=== PATIENT | female | born 1945 | race Caucasian/White ===

== ENCOUNTER 2017-04-08 19:10 | Observation (INO) | payer MEDICARE ==
[2017-04-08 19:56] LABS: BASOPHIL# 0.1 X 10^3uL (0.0-0.1); EOSINOPHILS 1.9 % (0.0-6.0); EOSINOPHILS# 0.2 X 10^3uL (0.0-0.4); HEMATOCRIT 38.5 % (36.0-48.0); HEMOGLOBIN 13.1 g/dL (12.0-16.0); LYMPHOCYTES 30.6 % (20.0-40.0); LYMPHOCYTES# 2.6 X 10^3uL (0.8-3.8); MEAN CELL VOLUME 79.8 fL (80.0-100.0); MEAN CORPUS. HGB CONCENTRATION 33.9 g/dL (32.0-36.0); MEAN PLATELET VOLUME 8.6 fL (7.4-10.4); MONOCYTES 9.3 % (2.0-10.0); MONOCYTES# 0.8 X 10^3uL (0.2-1.0); NEUTROPHILS 57.2 % (54.0-75.0); NEUTROPHILS# 4.9 X 10^3uL (2.6-6.7); RED BLOOD COUNT 4.83 X 10^6uL (4.20-6.10); WHITE BLOOD COUNT 8.6 X 10^3uL (3.9-10.7)
[2017-04-08] MEDS ORDERED: NORMAL SALINE 1,000 ML IV ONE (19:59)
[2017-04-08] MEDS ORDERED: ONDANSETRON HCL 4 MG/2 ML VIAL ONE (19:59)
[2017-04-08 20:03] LABS: POTASSIUM 3.8 mmol/L (3.5-5.1)
[2017-04-08 20:04] LABS: ALBUMIN 4.9 g/dL (3.5-5.0); BILIRUBIN, DIRECT 0.2 mg/dL (0.0-0.4); BILIRUBIN, TOTAL 0.6 mg/dL (0.2-1.3); CALCIUM 9.8 mg/dL (8.4-10.2); TOTAL PROTEIN 8.9 g/dL (6.3-8.2)
[2017-04-08] MEDS ORDERED: MAG-AL PLUS XS SUSP 30 ML UDC PO PRN (22:13)
[2017-04-08] MEDS ORDERED: HOME MEDICATION LIST NEEDED 1 EA EACH MISC ONE (22:13)
[2017-04-08] MEDS ORDERED: ACETAMINOPHEN 325 MG TABLET PO PRN (22:13)
[2017-04-08] MEDS ORDERED: ONDANSETRON HCL 4 MG/2 ML VIAL IV PRN (22:17)
--- NOTE | 2017-04-08 22:41 | ER PHYSICIAN DOCUMENTATION ---
Physician Documentation [facility] Name:Amelia Horner Age:71 yrs Sex:Female :1945 Arrival Date:04/08/2017 Time:19:10 Bed4 Private MD: Joseph Vela Disposition: 04/08/17 21:02 Admit ordered for Tamara Temple. Preliminary diagnosis are Gastroenteritis, Dehydration - (Hx of Liver Transplant), Metabolic Acidosis - due to dehydration (CO2 =11), Chronic Renal Failure/Insufficiency. - Bed requested for Medical/Surgical. - Condition is Fair. - Problem is new. - Symptoms are unchanged. 23 HR OBS Yes HPI: 04/08 19:42 This 71 yrs old Female presents to ER via Private Vehicle with complaints of cd Weakness; Diarrhea and dehydration. 19:42 The patient presents to the emergency department with nausea, that is mild, with cd vomiting, that is occasional, 4 times since the onset of symptoms, described as clear fluid, with diarrhea, 5 times today, 20 times this week, described as Slimy green, but not black or melanotic, without any complaints of abdominal pain. Onset: The symptom(s)/episode began/occurred acutely, 3 day(s) ago. Possible causes: unknown. The symptoms are aggravated by food , The symptoms are alleviated by nothing. Patient took two doses of Imodium AD yesterday. Associated signs and symptoms: Pertinent positives: anorexia, diarrhea, nausea, vomiting, Pertinent negatives: abdominal pain, dysuria, fever, GI bleeding, hematuria. Severity of symptoms: At their worst the symptoms were moderate in the emergency department the symptoms are unchanged. Patient reports feeling very weak and dizzy at times due to her dehydration. She has been trying to drink Gatorade, but reports it goes right through her. She denies high fever, chills, abdominal pain, but has had some abdominal cramping. She denies eating old leftover food, tick bites, stream / skelton water ingestion or recent antibiotics. She is a Liver Transplant patient. She is on a Kidney Transplant list. She has not been confused.. Historical: - Allergies: Ciprofloxacin HCl; ciperol; Oxycodone HCl; QUINIDINE/QUININE & DERIVATIVES; Sulfa (Sulfonamide Antibiotics); Latex; - Home Meds: 1. Acetaminophen Oral 2. sirolimus 1 mg oral tab once daily 3. omeprazole 40 mg oral cpDR 1 cap once daily 4. cyclobenzaprine 10 mg oral tab 1 tab 5. citalopram 20 mg oral tab 1 tab once daily 6. loratadine 10 mg oral cap daily 7. azathioprine 50 mg oral tab once daily 8. d3 3000iu 9. tramadol 50 mg oral tab 1 tab every 4-6 hours as needed - PMHx: Renal Failure; chronic pancreatitis ; a-fib; DIABETES - NIDDM; chronic renal disease; hysterectomy and bilateral oophorectomy, colitis, current C Diff, liver transplant, dialysis, fish R ant chest, port left ant chest. (2014 - 2014); Pt had c diff only during liver transplant; - PSHx: Liver Transplant 3 yrs ago; Right total hip replacement; - Tetanus: > 10 years. - Ebola Screening: : Patient negative for fever greater than or equal to 101.5 degrees Fahrenheit, and additional compatible Ebola Virus Disease symptoms. Patient denies exposure to infectious person. Patient denies travel to an Ebola-affected area in the 21 days before illness onset. No symptoms or risks identified at this time. . - Immunization history: Pneumococcal vaccine is not up to date, Flu Vaccine None. - Social history: Smoking status: Patient states was never smoker of tobacco. Patient/guardian denies using alcohol, street drugs, IV drugs, marijuana. ROS: 19:51 ENT: Negative for injury, pain, epistaxis and discharge. cd Neck: Negative for injury, pain, stiffness and swelling. Cardiovascular: Negative for chest pain, palpitations, edema and pleuritic pain. Respiratory: Negative for shortness of breath, dyspnea on exertion, cough, sputum production, wheezing, hemoptysis and pleuritic chest pain. Back: Negative for injury, pain or muscle spasms. : Negative for injury, bleeding, discharge, dysuria, frequency, urgency and swelling. MS/Extremity: Negative for injury, deformity, edema, calf tenderness, pain or coldness. Skin: Negative for injury, rash, itching and discoloration. 19:51 Neuro: Negative for headache, weakness, numbness, tingling, and seizure. cd 19:51 Constitutional: Positive for poor PO intake, Negative for chills, fever. 19:51 Abdomen/GI: Positive for nausea, vomiting, diarrhea, anorexia, Negative for abdominal pain, abdominal distension, hematemesis, black/tarry stool, rectal bleeding. 19:51 All other systems are negative. Exam: Head/Face: Normocephalic, atraumatic. ENT: Nares patent. No nasal discharge, no septal abnormalities noted. Tympanic membranes are normal and external auditory canals are clear. Oropharynx with no redness, swelling, or masses, exudates, or evidence of obstruction, uvula midline. Mucous membranes dry 19:52 Neck: Trachea midline, no thyromegaly or masses palpated, and no cervical cd lymphadenopathy. Supple, full range of motion without nuchal rigidity, or vertebral point tenderness. No Meningismus. 19:52 Constitutional: The patient appears alert, awake, non-diaphoretic, non-toxic, well developed, well nourished. 19:52 Cardiovascular: Rate: normal, Rhythm: regular, Pulses: no pulse deficits are appreciated, Heart sounds: normal, Edema: is not appreciated. 19:52 Respiratory: the patient does not display signs of respiratory distress, Respirations: normal, no acute changes, Breath sounds: are normal, clear throughout. 19:52 Abdomen/GI: Inspection: abdomen appears normal, Bowel sounds: active, Palpation: abdomen is soft and non-tender, mass, is not appreciated, rebound tenderness, is not appreciated, voluntary guarding, is not appreciated, involuntary guarding, is not appreciated, no appreciated organomegaly. 19:52 Back: pain, is absent, ROM is normal, CVA tenderness, is absent. 19:52 Musculoskeletal/extremity: Exam is negative for acute changes. 19:52 Skin: Exam negative for acute changes. 19:52 Neuro: Exam negative for acute changes. Vital Signs: 19:46 BP 122 / 66; Pulse 90; Resp 18; Temp 97.5; Pulse Ox 100% on R/A; sc1 20:02 BP 149 / 56; Pulse 80; Resp 17; Temp 98.5; Pulse Ox 95% on R/A; Weight 58.97 kg; Height mk2 5 ft. 1 in. (154.94 cm); Pain 1/10; 21:26 BP 135 / 67; Pulse 74; Resp 15; Pulse Ox 100% 2 lpm ; Pain 0/10; mk2 20:02 Body Mass Index 24.56 (58.97 kg, 154.94 cm) mk2 [place] Coma Score: 19:52 Eye Response: spontaneous(4). Verbal Response: oriented(5). Motor Response: obeys cd commands(6). Total: 15. MDM: 19:15 Patient medically screened. 19:20 Data interpreted: Pulse oximetry: on room air is 99 %. Interpretation: normal. 19:53 Differential diagnosis: viral gastroenteritis, gastroenteritis, Dehydration, cd Electrolyte Imbalance. 19:54 Data reviewed: vital signs, nurses notes, old medical records, and as a result, I will cd continue to observe the patient, administer IV fluids, NS bolus, NS maintenence, and Zofran. The patient may need admission for Observation and IV hydration overnight.. 20:58 Counseling: I had a detailed discussion with the patient and/or guardian regarding: the cd historical points, exam findings, and any diagnostic results supporting the discharge/admit diagnosis, lab results, the need for further work-up and treatment in the hospital, risk of leaving the Emergency Department. Response to treatment: the patient's symptoms have mildly improved after treatment, and as a result, I will admit patient. Physician consultation: Tamara Temple DO was called at 20:45, was contacted at 20:45, regarding admission, to the floor, consult, patient's condition, need to come to ED to see patient, and will see patient in ED, shortly, later today. 04/08 20:15 Order name: AMMONIA LEVEL; Complete Time: 20:30 EDMS 04/08 20:29 Interpretation: Normal. 04/08 20:24 Order name: CBC AUTO DIF, MDIF/RMOR IF IND; Complete Time: 20:30 EDMS 04/08 20:29 Interpretation: Normal. 04/08 20:24 Order name: BASIC METABOLIC PANEL; Complete Time: 20:30 EDMS 04/08 20:30 Interpretation: Normal Except: CARBON DIOXIDE 11; BLOOD UREA NITROGEN 86; CREATININE cd 3.2; Chronic Renal Insufficiency, Dehydration. 04/08 20:24 Order name: MAGNESIUM; Complete Time: 20:30 EDMS 04/08 20:30 Interpretation: Normal. 04/08 20:24 Order name: HEPATIC PANEL; Complete Time: 20:30 EDMS 04/08 20:30 Interpretation: Normal. 04/08 20:24 Order name: LIPASE; Complete Time: 20:30 EDMS 04/08 20:30 Interpretation: Normal. 04/08 20:58 Order name: FECAL LEUKS (LACTOFERRIN) EDWI 04/08 21:02 Interpretation: Abnormal: FECAL LEUKS (LACTOFERRIN) POSITIVE. 04/08 20:58 Order name: OCCULT BLOOD (1-3 SAMPLES) EDWI 04/08 21:02 Interpretation: Normal: OCCULT BLOOD (1-3 SAMPLES) OCCULT BLOOD IS NEGATIVE. 04/09 06:43 Order name: BASIC METABOLIC PANEL [facility] 04/09 06:43 Order name: HEPATIC PANEL [facility] 04/09 06:49 Order name: CBC AUTO DIF, MDIF/RMOR IF IND [facility] 04/09 08:19 Order name: STOOL CULTURE PANEL [facility] 04/09 08:49 Order name: C DIFFICILE BY PCR [facility] 04/09 16:48 Order name: BASIC METABOLIC PANEL [facility] 04/09 19:21 Order name: ARTERIAL BLOOD GAS [facility] 04/09 19:21 Order name: LACTATE [facility] 04/09 19:47 Order name: BASIC METABOLIC PANEL [facility] 04/09 19:47 Order name: PHOSPHORUS [facility] 04/09 23:02 Order name: BASIC METABOLIC PANEL [facility] 04/10 07:29 Order name: CBC AUTO DIF, MDIF/RMOR IF IND [facility] 04/10 07:50 Order name: COMPREHENSIVE METABOLIC PANEL [facility] 04/08 19:37 Order name: Hemocult Stool; Complete Time: 20:01 cd Dispensed Medications: 19:39 CANCELLED (Physician Discretion): NS 0.9% 1000 ml IV at bolus once cd 20:01 Drug: NS 0.9% 250 ml; Route: IV; Rate: bolus; Site: right antecubital; mk2 20:34 Follow up: IV Status: Completed infusion; IV Intake: 250ml mk2 20:01 Drug: Zofran 4 mg; Route: IVP; Infused Over: 2 mins; Site: right antecubital; mk2 20:16 Follow up: Response: No adverse reaction mk2 20:33 Drug: NS 0.9% 1000 ml; Route: IV; Rate: 84 ml/hr; Site: right antecubital; mk2 22:40 Follow up: IV Status: Infusion continued upon admission mk2 Point of Care Testing: Guaiac: 20:01 Stool Guaiac: Negative; Stool Hemoccult Control: Pass; sc1 Signatures: Jillian Matamoros, RN RN sc1 Joseph Thacker MD MD cd Kruger, Meg, NIKO RN mk2
--- NOTE | 2017-04-08 22:41 | ER NURSING DOCUMENTATION ---
Nurse's Notes [facility] Name:Amelia Horner Age:71 yrs Sex:Female :1945 Arrival Date:04/08/2017 Time:19:10 Bed4 Private MD: Diagnosis:Gastroenteritis;Dehydration- (Hx of Liver Transplant);Metabolic Acidosis-due to dehydration (CO2 =11);Chronic Renal Failure/Insufficiency Presentation: 04/08 19:12 Acuity: EDGAR 2 oh1 19:27 Presenting complaint: Patient states: N/V/D since Wednesday. Transition of care: Home. sc1 Notified ED Physician of patient's arrival and CC Dr. Thacker notified. 19:27 Method Of Arrival: Private Vehicle oh1 Triage Assessment: 19:46 General: Appears in no apparent distress, well developed, well nourished, well groomed, sc1 Behavior is cooperative, pleasant. Pain: Denies pain. Historical: - Allergies: Ciprofloxacin HCl; ciperol; Oxycodone HCl; QUINIDINE/QUININE & DERIVATIVES; Sulfa (Sulfonamide Antibiotics); Latex; - Home Meds: 1. Acetaminophen Oral 2. sirolimus 1 mg oral tab once daily 3. omeprazole 40 mg oral cpDR 1 cap once daily 4. cyclobenzaprine 10 mg oral tab 1 tab 5. citalopram 20 mg oral tab 1 tab once daily 6. loratadine 10 mg oral cap daily 7. azathioprine 50 mg oral tab once daily 8. d3 3000iu 9. tramadol 50 mg oral tab 1 tab every 4-6 hours as needed - PMHx: Renal Failure; chronic pancreatitis ; a-fib; DIABETES - NIDDM; chronic renal disease; hysterectomy and bilateral oophorectomy, colitis, current C Diff, liver transplant, dialysis, fish R ant chest, port left ant chest. (2014 - 2014); Pt had c diff only during liver transplant; - PSHx: Liver Transplant 3 yrs ago; Right total hip replacement; - Tetanus: > 10 years. - Ebola Screening: : Patient negative for fever greater than or equal to 101.5 degrees Fahrenheit, and additional compatible Ebola Virus Disease symptoms. Patient denies exposure to infectious person. Patient denies travel to an Ebola-affected area in the 21 days before illness onset. No symptoms or risks identified at this time. . - Immunization history: Pneumococcal vaccine is not up to date, Flu Vaccine None. - Social history: Smoking status: Patient states was never smoker of tobacco. Patient/guardian denies using alcohol, street drugs, IV drugs, marijuana. Screenin:47 Infectious Disease Risk None. Abuse screen: Denies threats or abuse. Nutritional sc1 screening: No deficits noted. Assessment: 20:03 See Triage Assessment done by same RN. mk2 Vital Signs: 19:46 BP 122 / 66; Pulse 90; Resp 18; Temp 97.5; Pulse Ox 100% on R/A; sc1 20:02 BP 149 / 56; Pulse 80; Resp 17; Temp 98.5; Pulse Ox 95% on R/A; Weight 58.97 kg; Height mk2 5 ft. 1 in. (154.94 cm); Pain 1/10; 21:26 BP 135 / 67; Pulse 74; Resp 15; Pulse Ox 100% 2 lpm ; Pain 0/10; mk2 20:02 Body Mass Index 24.56 (58.97 kg, 154.94 cm) mk2 [place] Coma Score: 19:52 Eye Response: spontaneous(4). Verbal Response: oriented(5). Motor Response: obeys cd commands(6). Total: 15. ED Course: 19:11 Patient arrived in ED. 19:12 Jillian Matamoros, RN is Primary Nurse. sc1 19:12 Triage completed. sc1 19:15 Joseph Thacker MD is Attending Physician. cd 19:41 Inserted peripheral IV: 20 gauge in right antecubital area and blood collected. mk2 19:47 Notified ED Physician of patient's arrival and chief complaint. Dr. Thacker notified. oh1 Allergy Band Placed Arm band placed on Bed in low position Call Light in Reach Gowned HOB Elevated Side rails up x1. Labs ordered per protocol. Drawn by ED staff. Urine obtained. 20:03 Resting quietly. Pt states she is incontinent of stool. Depends given to pt. Pt is has mk2 an unsteady gait to the restroom but states that is her normal. 20:17 Valuables Remains with patient Patient has correct armband on for positive mk2 identification. Placed in gown. Bed in low position. Call light in reach. Side rails up X 1. ED physician of Dr. Thacker notified. Notified bun 86 repeated back to MUKUND. Pulse ox on. NIBP on. Verbal reassurance given. Warm blanket given. 20:59 Tamara Temple DO is Admitting Physician. cd 22:39 Report given to Anibal POPE. 2 Administered Medications: 19:39 CANCELLED (Physician Discretion): NS 0.9% 1000 ml IV at bolus once cd 20:01 Drug: NS 0.9% 250 ml; Route: IV; Rate: bolus; Site: right antecubital; mk2 20:34 Follow up: IV Status: Completed infusion; IV Intake: 250ml mk2 20:01 Drug: Zofran 4 mg; Route: IVP; Infused Over: 2 mins; Site: right antecubital; mk2 20:16 Follow up: Response: No adverse reaction 2 20:33 Drug: NS 0.9% 1000 ml; Route: IV; Rate: 84 ml/hr; Site: right antecubital; mk2 22:40 Follow up: IV Status: Infusion continued upon admission 2 Point of Care Testing: Guaiac: 20:01 Stool Guaiac: Negative; Stool Hemoccult Control: Pass; oh1 Intake: 20:34 IV: 250ml; Total: 250ml. 2 Outcome: 21:02 Decision to Admit by Provider. cd 22:39 Admitted to Med/surg accompanied by nurse, via stretcher. mk2 22:39 Condition: stable 22:39 Instructed on need to admit 22:40 Patient left the ED. 2 Signatures: Jillian Matamoros RN RN oh1 Joseph Thacker MD MD cd Kruger, Meg, RN RN 2 Primo Kuo
[2017-04-08] MEDS ORDERED: NORMAL SALINE 1,000 ML IV SCH (23:00)
[2017-04-09 06:30] LABS: BASOPHIL# 0.1 X 10^3uL (0.0-0.1); BASOPHILS 1.7 % (0.0-2.0); EOSINOPHILS 2.9 % (0.0-6.0); EOSINOPHILS# 0.2 X 10^3uL (0.0-0.4); HEMATOCRIT 34.8 % (36.0-48.0); HEMOGLOBIN 11.6 g/dL (12.0-16.0); LYMPHOCYTES 40.2 % (20.0-40.0); LYMPHOCYTES# 2.7 X 10^3uL (0.8-3.8); MEAN CELL VOLUME 79.9 fL (80.0-100.0); MEAN CORPUS. HGB CONCENTRATION 33.4 g/dL (32.0-36.0); MEAN CORPUSCULAR HEMOGLOBIN 26.7 pg (29.0-35.0); MEAN PLATELET VOLUME 8.1 fL (7.4-10.4); MONOCYTES 11.1 % (2.0-10.0); MONOCYTES# 0.8 X 10^3uL (0.2-1.0); NEUTROPHILS 44.1 % (54.0-75.0); RED BLOOD COUNT 4.36 X 10^6uL (4.20-6.10); RED CELL DISTRIBUTION WIDTH 12.9 % (11.5-14.5); WHITE BLOOD COUNT 6.8 X 10^3uL (3.9-10.7)
[2017-04-09 06:40] LABS: ALBUMIN 4.3 g/dL (3.5-5.0); BILIRUBIN, DIRECT 0.1 mg/dL (0.0-0.4); BILIRUBIN, TOTAL 0.6 mg/dL (0.2-1.3); CALCIUM 9.1 mg/dL (8.4-10.2); POTASSIUM 3.7 mmol/L (3.5-5.1); TOTAL PROTEIN 7.8 g/dL (6.3-8.2)
--- NOTE | 2017-04-09 07:54 | PROGRESS NOTE: IM APSO ---
Assessment and Plan - Date of Encounter Date of Encounter: 04/09/17 (1) Chronic renal disease Status: Chronic Assessment and plan: Cr nearly back to baseline. Current Visit: No (2) Status post liver transplant Status: Chronic Assessment and plan: No acute issues. Current Visit: No (3) Gastroenteritis Status: Acute Assessment and plan: Await stool cultures, NVD slowing but loose stool this AM Current Visit: Yes (4) Dehydration Status: Resolved Assessment and plan: Numbers are improved. Possible d/c later today if self sustaining with good VS and some more info about stool cultures. Current Visit: Yes - Time Spent With Patient Total time spent with greater than 50% in coordination of care (as documented) at patient's floor/unit and/or counseling patient: IM: PN Subjective General: fatigue Gastrointestinal: diarrhea, no abdominal pain IM: PN Objective Exam - I&O/Vital Signs I&O: Intake & Output 04/08/17 04/09/17 04/09/17 21:59 05:59 13:59 Intake Total 1250 Balance 1250 Weight 59 kg Intake: IV 1000 Right Antecubital 1000 Oral 250 Other: Urine Appearance Clear Stool Size Small Stool Characteristics Liquid Vital Signs: Last Vital Signs Temp 36.1 C L 04/09/17 06:49 Pulse 68 04/09/17 06:49 Resp 16 04/09/17 06:49 BP 119/69 04/09/17 06:49 Pulse Ox 97 04/09/17 06:49 Oxygen Delivery Method Room Air - Constitutional General appearance: Present: average body habitus. Absent: acute distress - Eye Eye exam: Present: EOMI - ENT ENT exam: Present: mucous membranes moist - Respiratory Respiratory exam: Present: clear - Cardiovascular Cardiovascular exam: Present: RRR. Absent: systolic murmur - GI/Abdominal GI/Abdominal exam: Present: normal bowel sounds, soft - Neurological Exam Neurological exam: Present: oriented X3 - Psychiatric Psychiatric exam: Present: normal mood - Lab Labs: Laboratory Last Values WBC 6.8 X 10^3uL (3.9-10.7) 04/09/17 05:00 RBC 4.36 X 10^6uL (4.20-6.10) 04/09/17 05:00 Hgb 11.6 g/dL (12.0-16.0) L 04/09/17 05:00 Hct 34.8 % (36.0-48.0) L 04/09/17 05:00 MCV 79.9 fL (80.0-100.0) L 04/09/17 05:00 MCH 26.7 pg (29.0-35.0) L 04/09/17 05:00 MCHC 33.4 g/dL (32.0-36.0) 04/09/17 05:00 RDW 12.9 % (11.5-14.5) 04/09/17 05:00 Plt Count 244 X 10^3uL (130-440) 04/09/17 05:00 MPV 8.1 fL (7.4-10.4) 04/09/17 05:00 Neutrophils % 44.1 % (54.0-75.0) L 04/09/17 05:00 Lymphocytes % 40.2 % (20.0-40.0) H 04/09/17 05:00 Eosinophils % 2.9 % (0.0-6.0) 04/09/17 05:00 Basophils % 1.7 % (0.0-2.0) 04/09/17 05:00 Neutrophils # 3.0 X 10^3uL (2.6-6.7) 04/09/17 05:00 Lymphocytes # 2.7 X 10^3uL (0.8-3.8) 04/09/17 05:00 Monocytes 11.1 % (2.0-10.0) H 04/09/17 05:00 Monocytes # 0.8 X 10^3uL (0.2-1.0) 04/09/17 05:00 Eosinophils # 0.2 X 10^3uL (0.0-0.4) 04/09/17 05:00 Basophils # 0.1 X 10^3uL (0.0-0.1) 04/09/17 05:00 Sodium 140 mmol/L (137-145) 04/09/17 05:00 Potassium 3.7 mmol/L (3.5-5.1) 04/09/17 05:00 Chloride 111 mmol/L (98-107) H 04/09/17 05:00 Carbon Dioxide 14 mmol/L (22-30) L 04/09/17 05:00 BUN 83 mg/dL (7-17) H* 04/09/17 05:00 Creatinine 2.9 mg/dL (0.5-1.0) H 04/09/17 05:00 GFR Calculation 17 mL/min 04/09/17 05:00 Glucose 117 mg/dL (70-100) H 04/09/17 05:00 Calcium 9.1 mg/dL (8.4-10.2) 04/09/17 05:00 Magnesium 2.0 mg/dL (1.6-2.3) 04/08/17 11:37 Total Bilirubin 0.6 mg/dL (0.2-1.3) 04/09/17 05:00 Direct Bilirubin 0.1 mg/dL (0.0-0.4) 04/09/17 05:00 AST 19 U/L (14-36) 04/09/17 05:00 ALT 30 U/L (9-52) 04/09/17 05:00 Alkaline Phosphatase 95 U/L (38-126) 04/09/17 05:00 Ammonia < 9 umol/L (9-30) L 04/08/17 18:50 Total Protein 7.8 g/dL (6.3-8.2) 04/09/17 05:00 Albumin 4.3 g/dL (3.5-5.0) 04/09/17 05:00 Lipase 40 U/L (23-300) 04/08/17 11:37 Quality Questions - VTE Prophylaxis Assessment VTE Present on Admission?: No Patient at risk for venous thromboembolism?: Yes VTE Risk Level: Moderate Risk Pharmaceutical VTE prophylaxis contraindication reason: not indicated Mechanical VTE prophylaxis contraindication reason: not indicated (will get her moving!)
--- NOTE | 2017-04-09 09:17 | HISTORY & PHYSICAL ---
DATE OF ADMISSION: 04/08/17 ATTENDING PHYSICIAN: Tamara Temple MD PRIMARY CARE PHYSICIAN: DAMARIS Gastelum CHIEF COMPLAINT: Diarrhea and dehydration. HISTORY OF PRESENT ILLNESS: The patient is a 71-year-old who was with history of chronic kidney disease and liver transplant who has had a progressive gastroenteritis this past week. Patient states that she felt fine on Wednesday. They had a family barbeque with no significant symptoms or concerns. On Wednesday, she had a progression in her symptoms. Initially, it started out as what she calls egg burps, for which she had gross taste in her mouth and an upset stomach. This progressed dramatically to diarrhea, for which she called constant. This diarrhea continued and a day later she did develop some vomiting for which she had 2 episodes both yesterday and today. Patient states that she was not overly nauseated or had an upset stomach, but could not keep anything in. Her son noticed that she was hiccuping a lot, and this is what her interpretation of the egg burps were. Patient has been trying to stay hydrated on an outpatient basis but today she just felt too weak and the symptoms were ongoing too long, so she came in for an evaluation. Potential other family members with illness but did not last as long/started later, [id number] did have some GI symptoms Wednesday and Wednesday of this week and most recently her grandson (her sons child), did have 1 episode of vomiting and 1 loose stool today. PAST MEDICAL HISTORY 1. History of cirrhosis, status post liver transplant. 2. Chronic kidney disease with history of dialysis. 3. History of diabetes. 4. History of chronic pain related to multiple accidents, spinal, rib and wrist. 5. Hypertension. 6. Hyperlipidemia. 7. History of chronic pancreatitis. PAST SURGICAL HISTORY 1. Liver transplant 3 years ago. 2. Right total hip arthroplasty. FAMILY HISTORY: Her father had heart disease as well as history of lung cancer. Mother had breast cancer and diabetes. SOCIAL HISTORY: Patient currently lives alone. She denies any smoking. No alcohol. Her primary care physician is DAMARIS Gastelum at [facility]. MEDICATIONS Tylenol 500 mg every 8 hours as needed for pain. Imuran 50 mg 1-1/2 tablets every other evening. Vitamin D 2000 units daily. Citalopram 20 mg daily. Cyclobenzaprine 10 mg 3 times a day as needed. Claritin 10 mg daily. Omeprazole 1 capsule daily. Senna 2 tabs 2 times daily as needed for constipation. Simvastatin 10 mg nightly. Sirolimus 2 tabs by mouth daily. Tramadol 1 tab every 6 hours as needed for pain. ALLERGIES: Azithromycin. Ciprofloxacin. Latex. Oxycodone. Quinidine. Sulfa. REVIEW OF SYSTEMS GENERAL: Patient describes fatigue. No fever. No chills. HEENT: She has a dry mouth. CARDIOVASCULAR: No chest pain. No palpitations. She did have some swelling in her legs recently, that she saw Jarad for. RESPIRATORY: No shortness of breath. No cough. ABDOMEN: Did have nausea, vomiting as well as diarrhea. Decreased appetite. She has minimal abdominal pain. No bleeding that she has noted. : Denies any dysuria or frequency. MUSCULOSKELETAL: Denies any pain. She has chronic pain issues but no acute. SKIN: No rash. NEURO: No headache, weakness or changes in mental status. PHYSICAL EXAMINATION VITAL SIGNS: Temperature 97.5, blood pressure 122/56, pulse 90, respiratory rate 18. She is 100% on room air. GENERAL: Patient appears mildly dehydrated but in no acute distress. She is wrapped in multiple blankets in the exam room when I am seeing her. HEENT: Normocephalic, atraumatic. Oropharynx is clear but dry. NECK: Supple. No jugular venous distention. No carotid bruits noted. CARDIOVASCULAR: Normal S1, S2 with no murmur. RESPIRATORY: No increased work of breathing. No retractions. Clear to auscultation bilaterally. ABDOMEN: Soft. She does have active bowel sounds. No rebound or guarding noted on exam. MUSCULOSKELETAL: She moves arms and legs equally. SKIN: No acute changes. NEURO: Grossly nonfocal. LABORATORY: White count 8.6, hemoglobin 13.1, hematocrit 38.5, platelets of 348. Most notable, patient is typically anemic with labs from earlier this year showing hemoglobin 10 and hematocrit of 33. BMP showed sodium 137, potassium 3.8, chloride 107, bicarb 11, BUN is 86 and creatinine is 3.2. Typically her most recent creatinine was 2.8. Magnesium 2.0, lipase 40, AST 21, ALT 32, alkaline phosphatase 127. Ammonia level is less than 0. Negative blood. Positive fecal leukocytes. ASSESSMENT/PLAN: This is a 71-year-old female with history of liver failure, status post liver transplant and chronic kidney disease, presenting with an acute probable viral gastroenteritis causing dehydration in acute on chronic renal insufficiency. 1. Gastroenteritis. Patient currently has both vomiting and diarrhea. Most likely a viral etiology as her white count is not significantly elevated and she has some family members with similar or milder cases. Will continue to monitor her symptoms and treat as needed but will await her stool cultures. 2. Dehydration. This is secondary to GI loss. Will replete with gentle IV fluids through the night. Will likely need to replete her sodium level in the morning but hesitant to add sodium to her fluids tonight with her renal function as it is. 3. Acute on chronic kidney disease. Patient's BUN and creatinine are both elevated above her previous baseline, likely related to acute dehydration. Will do gentle fluid and reassess in the morning. 4. History of liver transplant. Patient is doing well overall from a liver standpoint. Her alkaline phosphatase is slightly bumped today, likely related to some dehydration. Denies any other symptoms of concern. Will have her home medications ordered, after pharmacy does medication reconciliation in the morning. 5. Chronic pain. Currently patient denies any symptoms of concern. Will have Tylenol available, but she denies needing any Flexeril or any of her other medications. 6. Deep vein thrombosis prophylaxis. Patient is moderate risk, although anticipate short stay in the hospital if symptoms improve, will order SCDs tonight and if do anticipate needing an additional night of stay, would recommend adding Lovenox. 7. Disposition. Patient is a [facility] patient. Will transition care to physician appropriately covering tomorrow. GRETA
[2017-04-09] MEDS ORDERED: NORMAL SALINE FLUSH 250 ML ONE (11:11)
[2017-04-09] MEDS ORDERED: SIROLIMUS 1 MG PO SCH ×2 (12:30→21:00)
[2017-04-09] MEDS ORDERED: NON-FORMULARY MEDICATION (Loratadine [Claritin] 10 MG) PO SCH (12:30)
[2017-04-09] MEDS: CHOLECALCIFEROL 1,000 UNIT CAPSULE PO SCH (13:41)
[2017-04-09] MEDS: CITALOPRAM HYDROBROMIDE 10 MG TABLET PO SCH (13:42)
[2017-04-09] MEDS: traMADol HCL 50 MG TABLET PO SCH ×2 (14:12→20:12)
[2017-04-09] MEDS: SIROLIMUS 2 MG PO SCH (15:59)
[2017-04-09] MEDS: PANTOPRAZOLE 40 MG VIAL IV SCH (16:01)
[2017-04-09 16:33] LABS: CALCIUM 9.3 mg/dL (8.4-10.2); POTASSIUM 3.9 mmol/L (3.5-5.1)
[2017-04-09 19:18] LABS: ARTERIAL BLOOD GAS HCO3 7.6 mmol/L (22-26); ARTERIAL BLOOD GAS PCO2 16.7 mmHg (35-45); ARTERIAL BLOOD GAS PO2 84 mmHg (80-105)
[2017-04-09 19:19] LABS: ARTERIAL BLD GAS O2 SATURATION 95 % (95-98); ARTERIAL BLOOD GAS BASE EXCESS -19 (-2-+3); ARTERIAL BLOOD GAS TOTAL CO2 8 mmHg (23-27)
[2017-04-09 19:20] LABS: LACTATE < 0.30 mmol/L
[2017-04-09] MEDS ORDERED: NORMAL SALINE 500 ML IV ONE (19:33)
[2017-04-09 19:42] LABS: BLOOD UREA NITROGEN 68 mg/dL (7-17); CALCIUM 9.5 mg/dL (8.4-10.2); CHLORIDE 115 mmol/L (98-107); EST GLOMERULAR FILTRATION RATE 21 mL/min; GLUCOSE 108 mg/dL (70-100); POTASSIUM 3.5 mmol/L (3.5-5.1); SODIUM 136 mmol/L (137-145)
[2017-04-09] MEDS: AZITHROMYCIN 250 MG TABLET PO SCH (20:12)
[2017-04-09 22:59] LABS: POTASSIUM 3.8 mmol/L (3.5-5.1)
[2017-04-10] MEDS: PANTOPRAZOLE 40 MG VIAL IV SCH (06:11)
[2017-04-10] MEDS: LOPERAMIDE HCL 2 MG CAPSULE PO PRN ×2 (06:12→09:01)
[2017-04-10 07:22] LABS: BASOPHILS 0.3 % (0.0-2.0); EOSINOPHILS 3.2 % (0.0-6.0); EOSINOPHILS# 0.2 X 10^3uL (0.0-0.4); HEMATOCRIT 31.5 % (36.0-48.0); HEMOGLOBIN 10.6 g/dL (12.0-16.0); LYMPHOCYTES 39.7 % (20.0-40.0); LYMPHOCYTES# 2.6 X 10^3uL (0.8-3.8); MEAN CORPUS. HGB CONCENTRATION 33.6 g/dL (32.0-36.0); MEAN CORPUSCULAR HEMOGLOBIN 26.9 pg (29.0-35.0); MEAN PLATELET VOLUME 8.9 fL (7.4-10.4); MONOCYTES 7.8 % (2.0-10.0); MONOCYTES# 0.5 X 10^3uL (0.2-1.0); NEUTROPHILS# 3.3 X 10^3uL (2.6-6.7); RED BLOOD COUNT 3.95 X 10^6uL (4.20-6.10); RED CELL DISTRIBUTION WIDTH 13.4 % (11.5-14.5); WHITE BLOOD COUNT 6.6 X 10^3uL (3.9-10.7)
[2017-04-10 07:36] LABS: A/G RATIO 1.2; ALBUMIN 3.9 g/dL (3.5-5.0); BILIRUBIN, TOTAL 0.5 mg/dL (0.2-1.3); CALCIUM 8.9 mg/dL (8.4-10.2); POTASSIUM 4.1 mmol/L (3.5-5.1); TOTAL PROTEIN 7.2 g/dL (6.3-8.2)
[2017-04-10] MEDS: CITALOPRAM HYDROBROMIDE 10 MG TABLET PO SCH (08:59)
[2017-04-10] MEDS: AZITHROMYCIN 250 MG TABLET PO SCH (08:59)
[2017-04-10] MEDS: CHOLECALCIFEROL 1,000 UNIT CAPSULE PO SCH (09:00)
[2017-04-10] MEDS: traMADol HCL 50 MG TABLET PO SCH ×3 (09:00→20:30)
[2017-04-10] MEDS: PROBIOTIC 1 CAP CAPSULE PO SCH (09:01)
[2017-04-10] MEDS: FEXOFENADINE HCL 180 MG TABLET PO SCH (09:01)
[2017-04-10] MEDS: SIROLIMUS 2 MG PO SCH (09:08)
[2017-04-10] MEDS: POTASSIUM CHLORIDE/NS 20 MEQ/1,000 ML BAG IV SCH (10:39)
--- NOTE | 2017-04-10 13:47 | PROGRESS NOTE: IM APSO ---
Assessment and Plan - Date of Encounter Date of Encounter: 04/10/17 (1) Gastroenteritis Status: Acute Assessment and plan: Symptoms since Wednesday of this week and was severely dehydrated by time she came in to emergency department. With ongoing symptoms despite conservative treatment I did give loperamide as well as azithromycin last evening. Stool culture negative at this time but ongoing diarrhea- will continue 3 day of azithro emprically despite negative culture due to patient's risk factors and potential ability to decrease course of diarrhea with abx therapy. Has never been febrile so no blood cultures done. Current Visit: Yes (2) Metabolic acidosis Status: Acute Assessment and plan: Ongoing hyperchloremic metabolic acidosis. Did have significant worsening in acidosis last evening but was non gap. Most likely related to ongoing diarrhea and GI losses and chronic kidney disease. Did attempt adjust fluid with some slight stabilization but not back to baseline for electrolytes. Continue to monitor stooling. Difficult lab draw so if continues to be stable will wait to repeat until tomorrow am. Current Visit: Yes (3) Dehydration Status: Resolved Assessment and plan: Improved with IV hydration. pending po intake may be able to buff cap IV later today Current Visit: Yes (4) Anemia Status: Chronic Assessment and plan: Known history of anemia related to chronic renal but slight worsening noted today. Likely related to decreased oral intake and aggressive IV fluids. No source of bleeding acutely. continue to monitor and will need further outpatient evaluation if ongoing. Current Visit: No (5) Chronic renal disease Status: Chronic Assessment and plan: Back to baseline but GFR only 22. Patient understands it is only matter of time until she needs dialysis. Does have renal specialist in [place], may contact if ongoing acidosis noted. Current Visit: No (6) Status post liver transplant Status: Chronic Assessment and plan: Stable currently with normal liver function. Continue antirejection mediations. Current Visit: No - Time Spent With Patient Total time spent with greater than 50% in coordination of care (as documented) at patient's floor/unit and/or counseling patient: Greater than 35 minutes Estimated anticipated discharge: 1-2 days IM: PN Subjective Interval history: Today states she is feeling a little better. Nervousness is much better. Still with diarrhea however- no episodes over night but did have episode this morning General: fatigue, anxiety (improved from yesterday) Cardiovascular: no chest pain, no chest pressure, no dizziness Respiratory: no cough, no SOB Gastrointestinal: abdominal pain (but better than yesterday), indigestion, diarrhea (one episode this morning so far at time of visit) Genitourinary: no dysuria Musculoskeletal: pain (chronic issues) Integumentary: no rashes Neurological: no headache IM: PN Objective Exam - I&O/Vital Signs I&O: Intake & Output 04/09/17 04/10/17 04/10/17 21:59 05:59 13:59 Intake Total 2241 300 Output Total 525 225 Balance 1716 75 Intake: IV 791 Right Antecubital 791 Oral 1450 300 Output: Urine 525 225 Other: Urine Appearance Clear Clear Clear Urine Color Yellow Yellow Yellow Stool Size Moderate Moderate Stool Characteristics Liquid Liquid Brown Brown Voiding Method Toilet Toilet Toilet # Voids 1 # Bowel Movements 3 Vital Signs: Last Vital Signs Temp 36.2 C L 04/10/17 11:00 Pulse 65 04/10/17 11:00 Resp 16 04/10/17 11:00 BP 144/61 04/10/17 11:00 Pulse Ox 100 04/10/17 11:00 Oxygen Delivery Method Room Air - Constitutional General appearance: Present: average body habitus, cooperative. Absent: acute distress - Eye Eye exam: Present: EOMI - ENT ENT exam: Present: mucous membranes moist - Respiratory Respiratory exam: Present: clear - Cardiovascular Cardiovascular exam: Present: RRR. Absent: systolic murmur - GI/Abdominal GI/Abdominal exam: Present: normal bowel sounds, soft - Extremities Exam Extremities exam: Absent: edema, tenderness - Back Exam Back exam: Present: normal inspection - Neurological Exam Neurological exam: Present: alert, oriented X3 - Psychiatric Psychiatric exam: Present: normal mood. Absent: anxious (much improved from last night), depressed - Skin Skin exam: Absent: rash - Allied Health Notes Allied health notes reviewed: nursing - Lab Labs: Laboratory Last Values WBC 6.6 X 10^3uL (3.9-10.7) 04/10/17 06:40 RBC 3.95 X 10^6uL (4.20-6.10) L 04/10/17 06:40 Hgb 10.6 g/dL (12.0-16.0) L 04/10/17 06:40 Hct 31.5 % (36.0-48.0) L 04/10/17 06:40 MCV 80.0 fL (80.0-100.0) 04/10/17 06:40 MCH 26.9 pg (29.0-35.0) L 04/10/17 06:40 MCHC 33.6 g/dL (32.0-36.0) 04/10/17 06:40 RDW 13.4 % (11.5-14.5) 04/10/17 06:40 Plt Count 215 X 10^3uL (130-440) 04/10/17 06:40 MPV 8.9 fL (7.4-10.4) 04/10/17 06:40 Neutrophils % 49.0 % (54.0-75.0) L 04/10/17 06:40 Lymphocytes % 39.7 % (20.0-40.0) 04/10/17 06:40 Eosinophils % 3.2 % (0.0-6.0) 04/10/17 06:40 Basophils % 0.3 % (0.0-2.0) 04/10/17 06:40 Neutrophils # 3.3 X 10^3uL (2.6-6.7) 04/10/17 06:40 Lymphocytes # 2.6 X 10^3uL (0.8-3.8) 04/10/17 06:40 Monocytes 7.8 % (2.0-10.0) 04/10/17 06:40 Monocytes # 0.5 X 10^3uL (0.2-1.0) 04/10/17 06:40 Eosinophils # 0.2 X 10^3uL (0.0-0.4) 04/10/17 06:40 Basophils # 0.0 X 10^3uL (0.0-0.1) 04/10/17 06:40 ABG pH 7.27 (7.35-7.45) L 04/09/17 18:53 ABG pCO2 16.7 mmHg (35-45) L* 04/09/17 18:53 ABG pO2 84 mmHg (80-105) 04/09/17 18:53 ABG HCO3 7.6 mmol/L (22-26) L 04/09/17 18:53 ABG Total CO2 8 mmHg (23-27) L* 04/09/17 18:53 ABG O2 Sat (Calculated) 95 % (95-98) 04/09/17 18:53 ABG Base Excess -19 (-2-+3) L 04/09/17 18:53 Sodium 141 mmol/L (137-145) 04/10/17 06:40 Potassium 4.1 mmol/L (3.5-5.1) 04/10/17 06:40 Chloride 119 mmol/L (98-107) H 04/10/17 06:40 Carbon Dioxide 11 mmol/L (22-30) L 04/10/17 06:40 BUN 61 mg/dL (7-17) H 04/10/17 06:40 Creatinine 2.3 mg/dL (0.5-1.0) H 04/10/17 06:40 GFR Calculation 22 mL/min 04/10/17 06:40 Glucose 94 mg/dL (70-100) 04/10/17 06:40 Lactic Acid < 0.30 mmol/L 04/09/17 18:53 Calcium 8.9 mg/dL (8.4-10.2) 04/10/17 06:40 Phosphorus 3.7 mg/dL (2.5-4.5) 04/09/17 18:53 Magnesium 2.0 mg/dL (1.6-2.3) 04/08/17 11:37 Total Bilirubin 0.5 mg/dL (0.2-1.3) 04/10/17 06:40 Direct Bilirubin 0.1 mg/dL (0.0-0.4) 04/09/17 05:00 AST 19 U/L (14-36) 04/10/17 06:40 ALT 28 U/L (9-52) 04/10/17 06:40 Alkaline Phosphatase 95 U/L (38-126) 04/10/17 06:40 Ammonia < 9 umol/L (9-30) L 04/08/17 18:50 Total Protein 7.2 g/dL (6.3-8.2) 04/10/17 06:40 Albumin 3.9 g/dL (3.5-5.0) 04/10/17 06:40 Albumin/Globulin Ratio 1.2 04/10/17 06:40 Lipase 40 U/L (23-300) 04/08/17 11:37 Quality Questions - VTE Prophylaxis Assessment VTE Present on Admission?: No Patient at risk for venous thromboembolism?: No VTE Risk Level: Moderate Risk Pharmaceutical VTE prophylaxis contraindication reason: N/A- VTE prophylaxsis ordered Mechanical VTE prophylaxis contraindication reason: N/A- VTE prophylaxsis ordered
[2017-04-11] MEDS: POTASSIUM CHLORIDE/NS 20 MEQ/1,000 ML BAG IV SCH (01:37)
[2017-04-11] MEDS: PANTOPRAZOLE 40 MG VIAL IV SCH (06:09)
[2017-04-11 06:22] LABS: BASOPHILS 0.4 % (0.0-2.0); EOSINOPHILS 3.2 % (0.0-6.0); EOSINOPHILS# 0.2 X 10^3uL (0.0-0.4); HEMATOCRIT 30.3 % (36.0-48.0); HEMOGLOBIN 9.9 g/dL (12.0-16.0); LYMPHOCYTES 48.7 % (20.0-40.0); LYMPHOCYTES# 2.5 X 10^3uL (0.8-3.8); MEAN CELL VOLUME 79.9 fL (80.0-100.0); MEAN CORPUS. HGB CONCENTRATION 32.8 g/dL (32.0-36.0); MEAN CORPUSCULAR HEMOGLOBIN 26.2 pg (29.0-35.0); MEAN PLATELET VOLUME 8.6 fL (7.4-10.4); MONOCYTES 8.5 % (2.0-10.0); MONOCYTES# 0.5 X 10^3uL (0.2-1.0); NEUTROPHILS 39.2 % (54.0-75.0); NEUTROPHILS# 2.1 X 10^3uL (2.6-6.7); RED BLOOD COUNT 3.79 X 10^6uL (4.20-6.10); RED CELL DISTRIBUTION WIDTH 13.4 % (11.5-14.5); WHITE BLOOD COUNT 5.3 X 10^3uL (3.9-10.7)
[2017-04-11 06:41] VITALS: BP 81/54; PULSE 71; RESP 14; TEMP 97.6; O2SAT 96
[2017-04-11 06:48] LABS: A/G RATIO 1.1; ALBUMIN 3.5 g/dL (3.5-5.0); BILIRUBIN, TOTAL 0.3 mg/dL (0.2-1.3); CALCIUM 8.7 mg/dL (8.4-10.2); POTASSIUM 4.4 mmol/L (3.5-5.1); TOTAL PROTEIN 6.8 g/dL (6.3-8.2)
[2017-04-11] MEDS: FEXOFENADINE HCL 180 MG TABLET PO SCH (08:57)
[2017-04-11] MEDS: CITALOPRAM HYDROBROMIDE 10 MG TABLET PO SCH (08:57)
[2017-04-11] MEDS: AZITHROMYCIN 250 MG TABLET PO SCH (08:58)
[2017-04-11] MEDS: PROBIOTIC 1 CAP CAPSULE PO SCH (08:58)
[2017-04-11] MEDS: traMADol HCL 50 MG TABLET PO SCH (08:58)
[2017-04-11] MEDS: CHOLECALCIFEROL 1,000 UNIT CAPSULE PO SCH (08:58)
[2017-04-11] MEDS: SIROLIMUS 2 MG PO SCH (08:59)
[2017-04-11] MEDS ORDERED: FERROUS SULFATE 325 MG TABLET PO SCH (09:15)
--- NOTE | 2017-04-11 09:17 | DC SUMMARY: IM Note ---
Discharge Summary: IM/Peds Provider: Date of Admission: 04/08/17 Admitting Provider: ELMER TRUONG Attending Provider: RONAN WINTERS MD Discharging Provider: ELMER TRUONG Primary Care Provider: Discharge Date: 04/11/17 - Diagnosis (1) Gastroenteritis Status: Acute (2) Metabolic acidosis Status: Acute (3) Dehydration Status: Resolved (4) Anemia Status: Chronic Qualifiers: Anemia type: due to chronic kidney disease Chronic kidney disease stage: stage 4 (severe) Qualified Code(s): N18.4 - Chronic kidney disease, stage 4 ( severe); D63.1 - Anemia in chronic kidney disease (5) Chronic renal disease Status: Chronic (6) Status post liver transplant Status: Chronic Hospital Course: Ms. Horner was admitted on 04/08/17 after 4 days history of progressive gastroenteritis. She was significantly dehydrated on arrive with acute on chronic renal insufficiency. Initially her labs improved with gentle hydration but with ongoing frequent stools she developed a more significant metabolic acidosis. Lactate was normal and no gap noted. With fluid adjustment and better control of diarrhea her metabolic acidosis improved but not resolved ( has some chronic related to kidney disease). I empirically started antibiotic Azithromycin (due to fluoroquinolone allergy) on 04/09 and despite negative stool cultures I continued medication as it seemed to help resolve her frequent large stools. By day of discharge patient stated last BM was yesterday evening , she is tolerating a bland diet and denies any symptoms of concern. Her CBC has dropped slightly with hospitalization but feel she was hemoconcentrated on arrival. typical Hemoglobin for patient is around 10/11. Today she was 9.9 but asymptomatic. heme occult was negative so anemia is likely chronic renal. She will restart iron and add iron rich foods to diet. BP on low end but again asymptomatic. Patient gets regular labs with her kidney specialist and encourage follow up labs this week. She will follow up with her PCP on wednesday or wednesday to ensure stabilization in blood pressure/symptoms. Patient is requesting discharge, she wants to visit with her nephew who is visiting only today. - Time Spent with Patient Total time spent providing and/or coordinating discharge services: Time with patient DS: Greater than 30 minutes Discharge - Patient/Caregiver Discharge Instructions Activity Level: As tolerated Diet: [place] but advance as tolerated- remember to try to increase iron rich foods as well as continue appropriate hydration. Additional Instructions: Restart iron supplementation twice daily and monitor for constipation. Follow up: RONAN WINTERS MD [ACTIVE (Staff Physician)] - 04/16/17 11:20 am (Call [facility] on Wednesday to see if appt available earlier in week.) Overall discharge status: patient is progressing back to baseline Print Language: EGYPTIAN Disposition: HOME, SELF-CARE Discharge Summary Data - Medication History Medication History: Home Medications Azathioprine [Azathioprine*] 75 mg PO DAILY 04/09/17 Cholecalciferol [Vitamin D*] 3,000 unit PO DAILY 04/09/17 Citalopram Hydrobromide [Celexa*] 20 mg PO DAILY 04/09/17 Loratadine [Claritin] 10 mg PO DAILY 04/09/17 Multivitamins,Therapeutic [Thera Multivitamin*] 1 tab PO DAILY 04/09/17 Omeprazole 40 mg PO DAILY PRN 04/09/17 Probiotic [Chanelle-Q Capsule*] 1 cap PO DAILY 04/09/17 Sirolimus 2 mg PO EVERY MORNING 04/09/17 traMADol HCL [Ultram*] 50 mg PO TID PRN 04/09/17 Inpatient Medications 04/08/17 22:13 Acetaminophen [Tylenol] 650 mg PO Q6H PRN Mag-Al Plus Xs Susp [Maalox Liquid] 30 ml PO Q4H PRN 04/08/17 22:17 Ondansetron HCl [Zofran] 4 mg IV Q6H PRN 04/09/17 12:22 proMETHazine HCL [Phenergan Inj] 12.5 mg IV Q6H PRN 04/09/17 12:30 Cholecalciferol [Vitamin D3] 3,000 unit PO DAILY Citalopram Hydrobromide [CeleXA] 20 mg PO DAILY 04/09/17 15:00 traMADol HCL [Ultram] 50 mg PO TID 04/09/17 15:25 Pantoprazole [Protonix IV] 40 mg IV BEFORE BREAKFAST 04/09/17 15:30 Sirolimus [Sirolimus] 2 mg PO DAILY 04/09/17 19:34 Loperamide HCl [Imodium Ad] 2 mg PO Q1H PRN 04/09/17 20:00 Azithromycin [Zithromax] 500 mg PO DAILY Potassium Chloride/Ns [KCl 20 Meq in Ns 1L] 20 meq in 1,000 ml IV CONT 04/10/17 09:00 Fexofenadine HCl [Maeve] 180 mg PO DAILY Probiotic [Chanelle-Q Capsule] 1 cap PO DAILY 04/10/17 21:00 Azathioprine [Imuran] 75 mg PO HS 04/11/17 09:15 Ferrous Sulfate 325 mg PO BID Procedures and tests throughout hospitalization: Completed Lab Orders 04/09/17 05:00 BASIC METABOLIC PANEL [CHEM] AMDRAW CBC AUTO DIF, MDIF/RMOR IF IND [HEM] AMDRAW HEPATIC PANEL [CHEM] AMDRAW 04/09/17 16:15 BMP [BASIC METABOLIC PANEL] [CHEM] Stat 04/09/17 18:53 BMP [BASIC METABOLIC PANEL] [CHEM] Routine LACTATE [CHEM] Urgent PHOSPHORUS [CHEM] Routine abg o2 [ARTERIAL BLOOD GAS] [CHEM] Urgent 04/09/17 22:37 BMP [BASIC METABOLIC PANEL] [CHEM] Routine 04/10/17 06:40 CBC AUTO DIF, MDIF/RMOR IF IND [HEM] AMDRAW cmp [COMPREHENSIVE METABOLIC PANEL] [CHEM] AMDRAW 04/11/17 06:05 CBC AUTO DIF, MDIF/RMOR IF IND [HEM] AMDRAW cmp [COMPREHENSIVE METABOLIC PANEL] [CHEM] AMDRAW Pending Orders 04/08/17 22:13 Admit: Observation Routine Activity: BRP w/ Assist Only . Advance diet as tolerated . Intake and Output QSHIFT I&O Obtain weight 0900 Resuscitation Status Routine Sequential Compression Device WHILE IN BED Titrate Oxygen TITRATE TO >90% Vital Signs ROUTINE VITALS (Q4H) Railroader Consult [CM] Routine Acetaminophen [Tylenol] 650 mg PO Q6H PRN Mag-Al Plus Xs Susp [Maalox Liquid] 30 ml PO Q4H PRN 04/08/17 22:15 VTE Prophylaxis Scoring/ Ordering Routine 04/08/17 22:17 Ondansetron HCl [Zofran] 4 mg IV Q6H PRN 04/09/17 07:54 Activity: Ambulate with Assist TID ROSMERY Hose . 04/09/17 12:22 proMETHazine HCL [Phenergan Inj] 12.5 mg IV Q6H PRN 04/09/17 12:30 Cholecalciferol [Vitamin D3] 3,000 unit PO DAILY Citalopram Hydrobromide [CeleXA] 20 mg PO DAILY 04/09/17 15:00 traMADol HCL [Ultram] 50 mg PO TID 04/09/17 15:25 Pantoprazole [Protonix IV] 40 mg IV BEFORE BREAKFAST 04/09/17 15:30 Sirolimus [Sirolimus] 2 mg PO DAILY 04/09/17 19:34 Loperamide HCl [Imodium Ad] 2 mg PO Q1H PRN 04/09/17 20:00 Azithromycin [Zithromax] 500 mg PO DAILY Potassium Chloride/Ns [KCl 20 Meq in Ns 1L] 20 meq in 1,000 ml IV CONT 04/10/17 09:00 Fexofenadine HCl [Maeve] 180 mg PO DAILY Probiotic [Chanelle-Q Capsule] 1 cap PO DAILY 04/10/17 21:00 Azathioprine [Imuran] 75 mg PO HS 04/10/17 Dinner Regular [DIET] 04/11/17 09:09 Buff cap IV .W/GOOD PO Miscellaneous Care Order . 04/11/17 09:15 Ferrous Sulfate 325 mg PO BID Labs on day of discharge: Labs from last 24 hours 04/11/17 06:05 WBC 5.3 RBC 3.79 L Hgb 9.9 L Hct 30.3 L MCV 79.9 L MCH 26.2 L MCHC 32.8 RDW 13.4 Plt Count 201 MPV 8.6 Neutrophils % 39.2 L Lymphocytes % 48.7 H Eosinophils % 3.2 Basophils % 0.4 Neutrophils # 2.1 L Lymphocytes # 2.5 Monocytes 8.5 Monocytes # 0.5 Eosinophils # 0.2 Basophils # 0.0 Sodium 141 Potassium 4.4 Chloride 119 H Carbon Dioxide 11 L BUN 42 H Creatinine 2.0 H GFR Calculation 26 Glucose 91 Calcium 8.7 Total Bilirubin 0.3 AST 31 ALT 23 Alkaline Phosphatase 86 Total Protein 6.8 Albumin 3.5 Albumin/Globulin Ratio 1.1 IM: Discharge Physical Exam - I&O/Vital Signs I&O: Intake & Output 04/10/17 04/11/17 04/11/17 21:59 05:59 13:59 Intake Total 1400 1525 Output Total 1075 1300 Balance 325 225 Intake: IV 610 1275 Right Antecubital 610 1275 Oral 790 250 Output: Urine 1075 1300 Other: Urine Appearance Clear Clear Urine Color Yellow Yellow Stool Size Moderate Stool Characteristics Liquid Voiding Method Toilet Toilet # Voids 3 # Bowel Movements 6 Vital Signs: Last Vital Signs Temp 36.4 C 04/11/17 06:40 Pulse 71 04/11/17 06:40 Resp 14 04/11/17 06:40 BP 81/54 04/11/17 06:40 Pulse Ox 96 04/11/17 06:40 Oxygen Delivery Method Room Air - Constitutional General appearance: Present: average body habitus, cooperative. Absent: acute distress - Eye Eye exam: Present: EOMI - ENT ENT exam: Present: mucous membranes moist - Respiratory Respiratory exam: Present: clear - Cardiovascular Cardiovascular exam: Present: RRR. Absent: systolic murmur - GI/Abdominal GI/Abdominal exam: Present: normal bowel sounds, soft - Extremities Exam Extremities exam: Absent: edema, tenderness - Back Exam Back exam: Present: normal inspection - Neurological Exam Neurological exam: Present: alert, oriented X3 - Psychiatric Psychiatric exam: Present: normal mood. Absent: anxious (much improved from last night), depressed - Skin Skin exam: Absent: rash - Allied Health Notes Allied health notes reviewed: nursing
== END 2017-04-11 09:21 | disposition home or self-care (01) ==
LOC: ER 19:10 → IN 21:42
PROVIDERS: ADMIT Family Medicine; ATTEND Family Medicine
DX: A08.4 Viral intestinal infection, unspecified (principal); E87.2 Acidosis; E86.0 Dehydration; Z94.4 Liver transplant status; N28.9 Disorder of kidney and ureter, unspecified; N19 Unspecified kidney failure; D63.1 Anemia in chronic kidney disease; Z79.899 Other long term (current) drug therapy
CPT/HCPCS: 36415; 36600; 80048; 80053; 80076; 82140; 82270; 82803; 83605; 83630; 83690; 83735; 84100; 85025; 87188; 87493; 87899; 96361; 96366; 96374; 96375; 96376; 99217; 99220; 99224; 99285; G0378; J2405; J3480; J7030; J7040; Q0144

== ENCOUNTER 2017-04-11 20:30 | Emergency (ER) | payer MEDICARE ==
--- NOTE | 2017-04-12 01:31 | ER NURSING DOCUMENTATION ---
Nurse's Notes [facility] Name:Amelia Horner Age:71 yrs Sex:Female :1945 Arrival Date:04/11/2017 Time:20:30 Bed2 Private MD: Diagnosis:Head Laceration-: 5 cm; Simple Surgical Closure (by MD) Presentation: 04/11 20:41 Presenting complaint: Patient states: Mechanical fall. Denied LOC. Large laceration on [facility] forehead. 20:41 Acuity: EDGAR 4 [facility] 20:45 Transition of care: Home. Mechanism of Injury: The problem was sustained at home. [facility] 20:45 Method Of Arrival: Walk In [facility] 20:45 Mechanism of Injury: The problem was sustained resulted from. [facility] Triage Assessment: 21:50 General: Appears comfortable, Behavior is cooperative. Pain: Complains of pain in [facility] forehead. EENT: No deficits noted. Neuro: Level of Consciousness is awake, alert, Oriented to person, place, Certified Coding Specialist are equal bilaterally Moves all extremities. Gait is steady, Speech is normal, Pupils are PERRLA. Cardiovascular: Chest pain is denied. Respiratory: Trachea midline Respiratory effort is even, unlabored, Respiratory pattern is regular, symmetrical. GI: No deficits noted. : No deficits noted. Derm: Skin is intact. Musculoskeletal: Circulation, motion, and sensation intact Capillary refill < 3 seconds. Injury Description: Laceration sustained to forehead. 04/12 01:28 Neuro: Reports dizziness. [facility] Historical: - Allergies: Ciprofloxacin HCl; ciperol; Oxycodone HCl; QUINIDINE/QUININE & DERIVATIVES; Sulfa (Sulfonamide Antibiotics); Latex; - Home Meds: 1. Acetaminophen Oral Unknown 2. sirolimus 1 mg oral tab once daily 3. omeprazole 40 mg oral cpDR 1 cap once daily 4. cyclobenzaprine 10 mg oral tab 1 tab 5. citalopram 20 mg oral tab 1 tab once daily 6. loratadine 10 mg oral cap daily 7. azathioprine 50 mg oral tab once daily 8. loratadine 10 mg oral cap daily 9. tramadol 50 mg oral tab 1 tab every 4-6 hours as needed - Tetanus: < 10 years. - Ebola Screening: : No symptoms or risks identified at this time. . - Immunization history: Unable to Obtain. - Social history: Smoking status: Patient states was never smoker of tobacco. Screenin/25 21:00 Infectious Disease Risk None. Abuse screen: Denies threats or abuse. Nutritional mk4 screening: No deficits noted. Vital Signs: 20:38 BP 149 / 61 (auto/); mk4 20:39 Pulse Ox 98% ; mk4 20:52 BP 158 / 60 (auto/); mk4 20:54 Pulse Ox 98% ; mk4 21:24 Pulse Ox 97% ; mk4 22:37 BP 132 / 88 (auto/); mk4 04/12 01:27 BP 132 / 79; Pulse 81; Resp 18; Temp 97.3; Pulse Ox 92% on R/A; mk4 Maged Coma Score: 04/11 01:05 Eye Response: spontaneous(4). Verbal Response: oriented(5). Motor Response: obeys cd commands(6). Total: 15. 20:35 Eye Response: spontaneous(4). Verbal Response: oriented(5). Motor Response: obeys cd commands(6). Total: 15. 20:45 Eye Response: spontaneous(4). Verbal Response: oriented(5). Motor Response: obeys mk4 commands(6). Total: 15. 22:40 Eye Response: spontaneous(4). Verbal Response: oriented(5). Motor Response: obeys cd commands(6). Total: 15. Trauma Score (Adult): 21:00 Eye Response: spontaneous(1); Verbal Response: oriented(1); Motor Response: obeys mk4 commands(2); Systolic BP: > 89 mm Hg(4); Respiratory Rate: 10 to 29 per min(4); Maged Score: 15; Trauma Score: 12 ED Course: 20:31 Patient arrived in ED. em3 20:33 Daisha Alexander is Primary Nurse. mk4 20:35 Joseph Thacker MD is Attending Physician. cd 20:43 Triage completed. mk4 21:[address] Thacker notified. Allergy Band Placed Arm band placed on Bed in mk4 low position Call Light in Reach Side rails up x2. Family accompanied patient. 21:00 Valuables Remains with patient. Pulse ox on. NIBP on. Ice pack to injury. mk4 23:18 Dressings: Band aid. Wound care to laceration located on forehead was cleaned with soap mk4 and water, Irrigation Normal Saline Patient tolerated well. Administered Medications: 04/12 01:26 Drug: Bacitracin Ointment (500 unit/g) 1 application; Route: Topical; Infused Over: 2 mk4 mins; Site: forehead; Outcome: 01: Discharge ordered by MD. liu 01:27 Discharged to home mk4 01:27 Condition: good 01:27 Discharge Assessment: Patient awake, alert and oriented x 3. No cognitive and/or functional deficits noted. Patient verbalized understanding of disposition instructions. 01:27 Discharge instructions given to patient, Instructed on discharge instructions, follow up and referral plans. Demonstrated understanding of instructions, medications. 01:30 Patient left the ED. 4 18:32 Discharge F/U Call: Spoke with: patient. Signatures: Joseph Thacker MD MD cd Meiklejohn, Eric em3 King, Melody 4 Venecia Andrade
--- NOTE | 2017-04-12 01:31 | ER PHYSICIAN DOCUMENTATION ---
Physician Documentation [facility] Name:Amelia Horner Age:71 yrs Sex:Female :1945 Arrival Date:04/11/2017 Time:20:30 Bed2 Private MD: Joseph Veal Disposition: 04/12/17 01:01 Discharged to Home/Self Care. Impression: Head Laceration - : 5 cm; Simple Surgical Closure (by MD). - Condition is Good. - Discharge Instructions: LACERATION, Scalp. - Medical Reconciliation form form. - Follow up: Emergency Department; When: 04/23/2017; Reason: Recheck today's complaints, Continuance of care, Staple/Suture removal. - Problem is new. - Symptoms have improved. - Notes: Keep wound clean. Wash every day with soapy water and dry thoroughly. Apply Bacitracin Ointment twice a day. Ice packs for first 24 hours. Sutures out in the Emergency Department in 10 days. HPI: 04/11 20:35 This 71 yrs old Female presents to ER via Walk In with complaints of Head cd Injury-Adult. 20:35 The patient or guardian reports a laceration, 5 cm(s), clean, simple. The complaints cd affect the top of head. Context of injury: The problem was sustained outdoors, resulted from a fall, from a standing position. Onset: The symptom(s)/episode began/occurred acutely, just prior to arrival. Associated signs and symptoms: Loss of consciousness: This patient did not experience any loss of consciousness. Pertinent positives: injury, forehead, Pertinent negatives: patient denies any alcohol consumption, dazed, double vision, headache, nausea, neck pain, shortness of breath, vomiting, generalized weakness. Severity of symptoms: At their worst the symptoms were mild, in the emergency department the symptoms are unchanged. Intracranial bleed risk factors: age over 60. The patient has not experienced similar symptoms in the past. Historical: - Allergies: Ciprofloxacin HCl; ciperol; Oxycodone HCl; QUINIDINE/QUININE & DERIVATIVES; Sulfa (Sulfonamide Antibiotics); Latex; - Home Meds: 1. Acetaminophen Oral Unknown 2. sirolimus 1 mg oral tab once daily 3. omeprazole 40 mg oral cpDR 1 cap once daily 4. cyclobenzaprine 10 mg oral tab 1 tab 5. citalopram 20 mg oral tab 1 tab once daily 6. loratadine 10 mg oral cap daily 7. azathioprine 50 mg oral tab once daily 8. loratadine 10 mg oral cap daily 9. tramadol 50 mg oral tab 1 tab every 4-6 hours as needed - Tetanus: < 10 years. - Ebola Screening: : No symptoms or risks identified at this time. . - Immunization history: Unable to Obtain. - Social history: Smoking status: Patient states was never smoker of tobacco. ROS: 22:00 Neck: Negative for injury, pain, stiffness and swelling. cd Cardiovascular: Negative for chest pain, palpitations, edema and pleuritic pain. Respiratory: Negative for shortness of breath, dyspnea on exertion, cough, sputum production, wheezing, hemoptysis and pleuritic chest pain. Abdomen/GI: Negative for abdominal pain, nausea, vomiting, diarrhea, constipation, distension, melena, hematochezia and hematemesis. Back: Negative for injury, pain or muscle spasms. MS/Extremity: Negative for injury, deformity, edema, calf tenderness, pain or coldness. 22:00 Neuro: Negative for headache, weakness, numbness, tingling, and seizure. cd 22:00 Constitutional: Negative for chills, fever, poor PO intake. 22:00 Eyes: Negative for injury or acute deformity, blurry vision, visual disturbance, vision loss. 22:00 ENT: Negative for injury or acute deformity, acute changes. 22:00 Skin: Positive for laceration(s), of the top of head. 22:00 All other systems are negative. Exam: Chest/axilla: Normal chest wall appearance and motion. Nontender with no deformity. No lesions are appreciated. Cardiovascular: Regular rate and rhythm with a normal S1 and S2. No gallops, murmurs, or rubs. Normal PMI, no JVD. No pulse deficits. Respiratory: Lungs have equal breath sounds bilaterally, clear to auscultation and percussion. No rales, rhonchi or wheezes noted. No increased work of breathing, no retractions or nasal flaring. Abdomen/GI: Soft, non-tender, with normal bowel sounds. No distension or tympany. No guarding or rebound. No evidence of tenderness throughout. Back: No spinal tenderness. No costovertebral tenderness. Full range of motion. MS/ Extremity: Pulses equal, no cyanosis. Neurovascular intact. Full, normal range of motion. 22:40 Neuro: Awake and alert, GCS 15, oriented to person, place, time, and situation. cd Cranial nerves II-XII grossly intact. Motor strength 5/5 in all extremities. Sensory grossly intact. Cerebellar exam normal. Normal gait. 22:40 Head/face: Noted is a laceration(s), that is deep, that is linear, 5 cm(s), of the top of head, Basilar skull fracture findings: the patient does not have obvious signs of a basilar skull fracture, no Migule signs, no hemotympanum, no nasal drainage, no racoon eyes, Sinus tenderness, is not appreciated. 22:40 Eyes: Pupils: equal, round, and reactive to light and accomodation, Extraocular movements: intact throughout. 22:40 ENT: TM's: are normal, Nose: is normal, Mouth: is normal. 22:40 Neck: C-spine: Nexus Criteria: Nexus criteria: no cervical midline tenderness, patient is not intoxicated, mental status is normal, no focal/neurologic deficits, and no painful distracting injuries are present, vertebral tenderness. 22:40 Skin: Appearance: normal except for affected area. 22:40 Neuro: Orientation: is normal, Mentation: is normal, lucid, Memory: is normal, Cranial nerves: CN II- XII are normal as tested, Motor: is normal, moves all fours, Sensation: is normal, Gait: is steady. Vital Signs: 20:38 BP 149 / 61 (auto/); mk4 20:39 Pulse Ox 98% ; mk4 20:52 BP 158 / 60 (auto/); mk4 20:54 Pulse Ox 98% ; mk4 21:24 Pulse Ox 97% ; mk4 22:37 BP 132 / 88 (auto/); mk4 04/12 01:27 BP 132 / 79; Pulse 81; Resp 18; Temp 97.3; Pulse Ox 92% on R/A; mk4 Maged Coma Score: 04/11 01:05 Eye Response: spontaneous(4). Verbal Response: oriented(5). Motor Response: obeys cd commands(6). Total: 15. 20:35 Eye Response: spontaneous(4). Verbal Response: oriented(5). Motor Response: obeys cd commands(6). Total: 15. 20:45 Eye Response: spontaneous(4). Verbal Response: oriented(5). Motor Response: obeys mk4 commands(6). Total: 15. 22:40 Eye Response: spontaneous(4). Verbal Response: oriented(5). Motor Response: obeys cd commands(6). Total: 15. Trauma Score (Adult): 21:00 Eye Response: spontaneous(1); Verbal Response: oriented(1); Motor Response: obeys mk4 commands(2); Systolic BP: > 89 mm Hg(4); Respiratory Rate: 10 to 29 per min(4); [place] Score: 15; Trauma Score: 12 Laceration: 22:40 Wound Repair of 5cm ( 2.0in ) subcutaneous laceration to top of head. Linear shaped.. cd Minimal contamination.. Minimal bleeding noted.. Distal neuro/vascular/tendon intact. Anesthesia: Local anesthetic administered with 6 mls of 2% lidocaine w/ Epi. Wound prep: Moderate cleansing with hibiclenz. Skin closed with 20 5-0 Prolene using Vertical mattress sutures. Dressed with Bacitracin, Open to air. Patient tolerated well. MDM: 01:05 Neurological re-evaluation: normal neurological exam including cranial nerves, cd orientation, mentation, motor and sensory exam, cerebellar testing, GCS normal, and normal gait. Data reviewed: vital signs, nurses notes, old medical records, and as a result, I will discharge patient. Counseling: I had a detailed discussion with the patient and/or guardian regarding: the historical points, exam findings, and any diagnostic results supporting the discharge/admit diagnosis, the need for outpatient follow up, for a recheck, with the patient's primary care provider, to return to the emergency department if symptoms worsen or persist or if there are any questions or concerns that arise at home. Response to treatment: the patient's symptoms have markedly improved after treatment, the patient's condition has returned to base line, and as a result, I will discharge patient. 20:35 Patient medically screened. cd 22:40 Differential diagnosis: Contusion of head, Laceration of scalp, Intracranial bleed- cd Concussion without LOC. cerebral contusion. Dispensed Medications: 04/12 01:26 Drug: Bacitracin Ointment (500 unit/g) 1 application; Route: Topical; Infused Over: 2 mk4 mins; Site: forehead; Signatures: Joseph Thacker MD MD cd King, Melody mk4
== END 2017-04-12 01:30 | disposition home or self-care (01) ==
LOC: ER 20:30
DX: S01.01XA Laceration without foreign body of scalp, initial encounter (principal); W18.39XA Other fall on same level, initial encounter; Y92.89 Other specified places as the place of occurrence of the external cause; Z79.899 Other long term (current) drug therapy
CPT/HCPCS: 12002; 12032; 99282; 99283